=== PATIENT | female | born 1975 | race Caucasian/White ===

== ENCOUNTER 2016-09-15 15:26 | Outpatient (CLI) | payer OTHER ==
[~2016-09-15] VITALS: Ht 190.5 cm; Wt 145.0 kg
[2016-09-15 15:35] VITALS: BP 136/81; PULSE 86; RESP 18; Ht 190.5 cm; Wt 145.0 kg
--- NOTE | 2016-09-15 15:45 | PN ---
Date/Time of Note Date/Time of Note DATE: 09/15/16 TIME: 15:39 Outpatient Progress Note Chief Complaint Diabetes ketoacidosis/diabetes/hyperlipidemia/obesity/renal insufficiency HPI Diabetic ketoacidosis/patient was recently admitted with a diabetic a ketoacidosis, patient on insulin now, patient controlled, Diabetes/no pleuritic supple due to hypoglycemia, gastroparesis, on insulin, Hyperlipidemia/no xanthoma, on medication, no side effect of medication, Obesity/delete patient morbidly obese, no history of any hypothyroidism, Renal insufficiency/no nausea vomiting: Patient was given IV fluid in the hospital, improved significantly, Review of Systems Const: [No Fever, no chills, no Wt. loss, no Fatigue, normal appetite, no diaphoresis.] Eyes: [No pain, no discharge, no redness, no visual change, no foreign body.] ENT: [No pain, no bleeding, no congestion, no sore throat, no dysphagia, no discharge or rhinitis.] Lymph: [No adenopathy, no tender nodes, no lymphedema.] Resp: [No SOB, no cough, no sputum, no wheezing, no chest pain.] CV: [No chest pain, no palpitaions, no RUIZ, no PND, no edema.] GI: [Normal appetite, no pain, no nausea, no vomiting, no diarrhea, no blood, no constipation.] : [No frequency, no urgency, no dysuria, no hematuria, no flank pain, no discharge, no bleeding.] Musc: [No bone/joint pain, no back pain, no neck pain, no knee pain, no restricted ROM.] Skin: [No rash, no skin lesions, no erythema, no laceration, no bruising, no pruritus.] Neuro: [No GARVIN, no dizziness, no syncope, no seizure, no focal-weakness.] Endo: [No polyuria, no polydypsia, no dry-skin, no temp-intolerance.] Psych: [No hallucinations, no depression, no anxiety, no suicidal ideation.] Ext: [No edema, no pain, no ulcer, no weakness.] Physical Exam General Appearance: A [40] year-old [male [who appears well-developed, well- nourished, in no acute distress.] HEENT: [Head normocephalic, atraumatic. Pupils equal, round, reactive to light and accommodate. Sclerae are no jaundice. Nasal turbinates pink without erythema or nasal discharge. Mucous membranes pink and moist without lesions. Oropharynx clear without any exudate or discharge.] NECK: [Supple. Trachea midline, No thyromegaly, No cervical lymphadenopathy, No mass, No carotid bruits, No JVD, Carotid pulses 2+ bilaterally.] PULMONARY: [Clear to auscultaion bilaterally, No retractions, Chest expansion symmetric bilaterally, no rales, no ronchi, no dulness on percussion.] CARDIAC: [Normal SI and S2, Regular rate and rythm, no murmur, gallop, or rub.] GASTROINTESTINAL: [Abdomen is soft, non-tender, Non Rigid, No distention, Positive bowel sounds x4 quadrants, Liver normal.] SKIN: [Warm, dry, no rash, no bruise, no echmosis.] EXTREMITIES: [Bilateral lower extremities normal, no edema, no phlabitus, pulse palpable, no contracture.] MUSCULOSKELETAL: [Spine Normal, Non-tender, Normal range of motion, No swelling , no deformity, no clubbing, or cyanosis, the patient has no edema to bilateral lower extremities, dorsalis pedis pulses palpable bilaterally.] NEUROLOGIC: [The patient is awake, alert, oriented, responding to yes/no questions appropriately, moving all extremities, cranial nerve intact, normal strenght, normal power, normal coordination, normal gait.] PMH Allergies none Past history/patient was recently diagnosed with diabetes, no major medical problem in the past, Social Hx No smoking or drinking, Family Hx Noncontributory Assessment/Plan Impression Diabetic ketoacidosis resolved/diabetes/h hyperlipidemia/obesity/renal insufficiency Plan Diabetic education has been done, patient brought all the reading of blood sugar , fairly controlled, Patient encouraged to follow with the primary care physician, Patient encouraged to increase activity, and lose weight, and controlled cholesterol, Patient is all the medication CBC CMP in 2 weeks, Patient has all the medication, RACHEL ELIZABETH MD Sep 15, 2016 15:44
[2016-09-15] MEDS ORDERED: LANT3I SC (15:46)
[2016-09-15] MEDS ORDERED: INSU100C SQ (15:46)
== END 2016-09-15 16:30 | disposition home or self-care (01) ==
LOC: DCC 15:26
PROVIDERS: ATTEND Internal Medicine
DX: E13.10 Other specified diabetes mellitus with ketoacidosis without coma (principal); E78.5 Hyperlipidemia, unspecified; N28.9 Disorder of kidney and ureter, unspecified; E66.9 Obesity, unspecified; Z68.41 Body mass index [BMI] 40.0-44.9, adult
CPT/HCPCS: 82962; G0463

== ENCOUNTER 2016-09-29 15:11 | Outpatient (CLI) | payer OTHER ==
[~2016-09-29] VITALS: Ht 190.5 cm; Wt 145.0 kg
[~2016-09-29 15:11] MED LIST: INSU100C SQ; LANT3I SC
[2016-09-29 15:26] VITALS: BP 133/75; PULSE 72; RESP 18; Ht 190.5 cm; Wt 145.0 kg
--- NOTE | 2016-09-29 16:10 | PN ---
Date/Time of Note Date/Time of Note DATE: 09/29/16 TIME: 15:31 Outpatient Progress Note Chief Complaint Diabetes/hyperlipidemia/obesity/renal insufficiency HPI Diabetes/no polydipsia or polyuria, no gastroparesis, no impaired vision, patient blood sugar now nicely controlled, blood sugar between 70-150, patient did have diabetic ketoacidosis, and patient was recently hospitalized, Hyperlipidemia/no xanthoma, on medication, no side effect of medication, Morbid obesity/patient morbidly obese, no thyroid problem, Renal insufficiency/no nausea vomiting or pruritus, Review of Systems Const: No Fever, no chills, no Wt. loss, no Fatigue, normal appetite, no diaphoresis. Eyes: No pain, no discharge, no redness, no visual change, no foreign body. ENT: No pain, no bleeding, no congestion, no sore throat, no dysphagia, no discharge or rhinitis. Lymph: No adenopathy, no tender nodes, no lymphedema. Resp: No SOB, no cough, no sputum, no wheezing, no chest pain. CV: No chest pain, no palpitaions, no RUIZ, no PND, no edema. GI: Normal appetite, no pain, no nausea, no vomiting, no diarrhea, no blood, no constipation. : No frequency, no urgency, no dysuria, no hematuria, no flank pain, no discharge, no bleeding. Musc: No bone/joint pain, no back pain, no neck pain, no knee pain, no restricted ROM. Skin: No rash, no skin lesions, no erythema, no laceration, no bruising, no pruritus. Neuro: No GARVIN, no dizziness, no syncope, no seizure, no focal-weakness. Endo: No polyuria, no polydypsia, no dry-skin, no temp-intolerance. Psych: No hallucinations, no depression, no anxiety, no suicidal ideation. Ext: No edema, no pain, no ulcer, no weakness. Physical Exam Vital Signs Date Time Temp Pulse Resp B/P Pulse Ox O2 Delivery O2 Flow Rate FiO2 09/29/16 15:26 98.6 72 18 133/75 97 Room Air General Appearance: A 41 year-old male who appears well-developed, well- nourished, morbid obesity, in no acute distress. HEENT: Head normocephalic, atraumatic. Pupils equal, round, reactive to light and accommodate. Sclerae are no jaundice. Nasal turbinates pink without erythema or nasal discharge. Mucous membranes pink and moist without lesions. Oropharynx clear without any exudate or discharge. NECK: Supple. Trachea midline, No thyromegaly, No cervical lymphadenopathy, No mass, No carotid bruits, No JVD, Carotid pulses 2+ bilaterally. PULMONARY: Clear to auscultaion bilaterally, No retractions, Chest expansion symmetric bilaterally, no rales, no ronchi, no dulness on percussion. CARDIAC: Normal SI and S2, Regular rate and rythm, no murmur, gallop, or rub. GASTROINTESTINAL: Abdomen is soft, non-tender, Non Rigid, No distention, Positive bowel sounds x4 quadrants, Liver normal. SKIN: Warm, dry, no rash, no bruise, no echmosis. EXTREMITIES: Bilateral lower extremities normal, no edema, no phlabitus, pulse palpable, no contracture. MUSCULOSKELETAL: Spine Normal, Non-tender, Normal range of motion, No swelling, no deformity, no clubbing, or cyanosis, the patient has no edema to bilateral lower extremities, dorsalis pedis pulses palpable bilaterally. NEUROLOGIC: The patient is awake, alert, oriented, responding to yes/no questions appropriately, moving all extremities, cranial nerve intact, normal strenght, normal power, normal coordination, normal gait. PMH No change, Social Hx No change, Family Hx No change, Assessment/Plan Impression Diabetes/hyperlipidemia/morbid obesity/renal insufficiency Plan Patient encouraged to increase activity, patient encouraged to lose weight, patient encouraged to increase roughage, control of blood sugar, Diabetic education done, Patient encouraged to follow with the primary care physician, Refill both Lipitor and Glucophage done, patient has his insulin, Medications Home Meds Reported Medications Insulin Glargine* (Lantus*) 100 Unit/Ml Soln, 40 UNIT SC QHS, #1 VIAL 09/15/16 Insulin Lispro (Humalog) 100 Unit/1 Ml Cartridge, 100 UNIT SQ 09/15/16 RACHEL ELIZABETH MD Sep 29, 2016 15:41
== END 2016-09-29 16:26 | disposition home or self-care (01) ==
LOC: DCC 15:11 → EDSEX 15:11 → DCC 16:26
PROVIDERS: ATTEND Internal Medicine
DX: E13.10 Other specified diabetes mellitus with ketoacidosis without coma (principal); E78.5 Hyperlipidemia, unspecified; E66.01 Morbid (severe) obesity due to excess calories; N28.9 Disorder of kidney and ureter, unspecified